=== PATIENT | female | born 1985 | race American Indian/Alaskan Native ===

== ENCOUNTER 2020-05-17 22:01 | Emergency (ER) | payer MEDICAID ==
[2020-05-17 22:48] VITALS: BP 126/53
--- NOTE | 2020-05-18 00:02 | Emergency Department Report ---
ED ENT HPI - General Chief complaint: Sore Throat Stated complaint: THROAT IS BURNING Time Seen by Provider: 05/17/20 23:34 Source: patient Mode of arrival: Ambulatory Limitations: No Limitations - History of Present Illness Initial comments: 34-year-old female with no significant past medical history presents to the ER today complaining of sore throat. Onset 3 days ago. She describes as a burning pain which is worse when she swallows. She reports associated swelling to her throat. She states that she has been spitting frequently but denies any d rooling or trismus. She reports associated mild cough but denies any other symptoms. She denies any ill contacts or recent travel. complaint: sore throat -: Gradual, days(s) (3) Location: throat - Related Data Previous Rx's Medication Instructions Recorded Last Taken Type Amoxicillin [Trimox CAP] 500 mg PO Q12H #20 capsule 05/18/20 Unknown Rx predniSONE [Deltasone] 40 mg PO QDAY #10 tab 05/18/20 Unknown Rx Allergies Allergy/AdvReac Type Severity Reaction Status Date / Time No Known Allergies Allergy Unverified 05/17/20 22:44 ED Dental HPI - General Chief complaint: Sore Throat Stated complaint: THROAT IS BURNING Time Seen by Provider: 05/17/20 23:34 Source: patient Mode of arrival: Ambulatory Limitations: No Limitations - Related Data Previous Rx's Medication Instructions Recorded Last Taken Type Amoxicillin [Trimox CAP] 500 mg PO Q12H #20 capsule 05/18/20 Unknown Rx predniSONE [Deltasone] 40 mg PO QDAY #10 tab 05/18/20 Unknown Rx Allergies Allergy/AdvReac Type Severity Reaction Status Date / Time No Known Allergies Allergy Unverified 05/17/20 22:44 ED Review of Systems ROS: Stated complaint: THROAT IS BURNING Other details as noted in HPI Comment: All other systems reviewed and negative Constitutional: denies: chills, fever ENT: throat pain Respiratory: cough Cardiovascular: denies: chest pain, palpitations Endocrine: no symptoms reported Gastrointestinal: denies: abdominal pain, nausea, diarrhea Genitourinary: denies: urgency, dysuria, discharge Musculoskeletal: denies: back pain, joint swelling, arthralgia Skin: denies: rash, lesions Neurological: denies: headache, weakness, paresthesias Psychiatric: denies: anxiety, depression ED Past Medical Hx - Past Medical History Previous Medical History?: No - Surgical History Past Surgical History?: Yes Additional Surgical History: Gastric Bypass 03/2019, - Social History Smoking Status: Never Smoker Substance Use Type: None - Medications Home Medications: Home Medications Medication Instructions Recorded Confirmed Last Taken Type Amoxicillin [Trimox CAP] 500 mg PO Q12H #20 capsule 05/18/20 Unknown Rx predniSONE [Deltasone] 40 mg PO QDAY #10 tab 05/18/20 Unknown Rx ED Physical Exam - General Limitations: No Limitations General appearance: alert, in no apparent distress - Head Head exam: Present: atraumatic, normocephalic, normal inspection - Eye Eye exam: Present: normal appearance, PERRL, EOMI Pupils: Present: normal accommodation - ENT ENT exam: Present: normal exam, mucous membranes moist, other (Mild to mod erythema noted to posterior pharynx, no tonsillar swelling or exudates noted. No trismus or drooling noted. ) - Neck Neck exam: Present: normal inspection, full ROM, lymphadenopathy (anterior cervical ). Absent: meningismus - Respiratory Respiratory exam: Present: normal lung sounds bilaterally. Absent: respiratory distress - Cardiovascular Cardiovascular Exam: Present: regular rate, normal rhythm, normal heart sounds - GI/Abdominal GI/Abdominal exam: Present: soft. Absent: distended, tenderness - Neurological Exam Neurological exam: Present: alert, oriented X3, CN II-XII intact, normal gait - Psychiatric Psychiatric exam: Present: normal affect, normal mood - Skin Skin exam: Present: intact ED Course Vital Signs 05/17/20 22:44 Temperature 98.4 F Pulse Rate 80 Respiratory 18 Rate Blood Pressure 126/53 O2 Sat by Pulse 100 Oximetry ED Medical Decision Making - Medical Decision Making The patient is resting comfortably and is well-appearing and in no acute distress. There is no respiratory distress, no stridor and the mental status is normal. The neurological exam is normal, and there is no significant signs of dehydration. The history, exam, diagnostic testing and the patient current condition does not suggest an infectious process such as meningitis, retropharyngeal abscess, epiglottitis, peritonsillar abscess, Robert's angina, mastoiditis, orbital cellulitis, periorbital cellulitis, severe meningitis, malignant otitis externa, sepsis or any significant pathology warranting further testing, continued ED treatment, admission, consultation or any other evaluation at this time. The vital signs have been stable. The patient condition is stable and appropriate for discharge. Critical care attestation.: If time is entered above; I have spent that time in minutes in the direct care of this critically ill patient, excluding procedure time. ED Disposition Clinical Impression: Pharyngitis Disposition: DC-01 TO HOME OR SELFCARE Is pt being admited?: No Does the pt Need Aspirin: No Condition: Stable Instructions: Pharyngitis, [id number] Additional Instructions: Take the medication prescribed as directed. Drink lots of fluids, especially cold fluids. You can also do [id number] throat lozenges. Follow-up closely with your primary care doctor. Return to the ER if your symptoms changes or worsens. Prescriptions: predniSONE [Deltasone] 40 mg PO QDAY #10 tab Amoxicillin [Trimox CAP] 500 mg PO Q12H #20 capsule Referrals: ALTAGRACIA CHERY MD [Primary Care Provider] - 3-5 Days Time of Disposition: 00:02
== END 2020-05-18 00:16 | disposition home or self-care (01) ==
LOC: ED 22:01
DX: J02.9 Acute pharyngitis, unspecified (principal); R22.0 Localized swelling, mass and lump, head; R05 Cough; Z98.890 Other specified postprocedural states; Z79.2 Long term (current) use of antibiotics; Z79.899 Other long term (current) drug therapy
CPT/HCPCS: 99281

== ENCOUNTER 2021-05-31 08:24 | Emergency (ER) | payer MEDICAID ==
--- NOTE | 2021-05-31 09:42 | Event Note ---
ED Screening Note Date of service: 05/31/21 Time: 09:25 ED Screening Note: 35-year-old morbid obese -[place] female presents to the emergency room complaining of a 4-day history of right flank pain and stomach pain. Patient states sitting makes it worse better makes it lying down. She states that it is stabbing and constant. She complains of nausea vomiting and diarrhea. She denies any vaginal bleeding vaginal discharge or dysuria. She reports her last menstrual period started 05/30/2020. She reports she does not have a primary care provider but is followed by structural drafter for anemia and multiple blood transfusions. Patient states she had bypass surgery approximately 2 to [address] Mendez Gandhi [facility]. She states that she is on anti-gas medicine and vitamin B. This initial assessment/diagnostic orders/clinical plan/treatment(s) is/are subject to change based on patients health status, clinical progression and re- assessment by fellow clinical providers in the ED. Further treatment and workup at subsequent clinical providers discretion. Patient/guardian urged not to elope from the ED as their condition may be serious if not clinically assessed and managed. Initial orders include:
[2021-05-31] MEDS ORDERED: ONDANSETRON 4 MG ODT TAB PO ONE (10:32)
[2021-05-31] MEDS ORDERED: KETOROLAC 60 MG/2 ML INJ IM ONE (10:33)
--- NOTE | 2021-05-31 10:39 | Emergency Department Report ---
HPI - General Chief Complaint: Abdominal Pain Time Seen by Provider: 05/31/21 10:03 - HPI HPI: Room 7 Patient is a 35-year-old female present with a chief complaint of right flank pain. The patient states for the past 4 days she has had a constant pain in the right upper quadrant and right back. Patient admits to nausea vomiting and diarrhea with this pain. Patient denies history of fever, dysuria or hematuria. Patient states for the past 2 to 3 days she has had diarrhea. Patient denies recent antibiotic use. Patient gives her pain a score of 8/10 ED Past Medical Hx - Past Medical History Previous Medical History?: No - Surgical History Additional Surgical History: Gastric Bypass 03/2019, - Family History Family history: no significant - Social History Smoking Status: Never Smoker Substance Use Type: None (Denies illicit drug use) - Medications Home Medications: Home Medications Medication Instructions Recorded Confirmed Last Taken Type Amoxicillin [Trimox CAP] 500 mg PO Q12H #20 capsule 05/18/20 Unknown Rx predniSONE [Deltasone] 40 mg PO QDAY #10 tab 05/18/20 Unknown Rx Dicyclomine [Bentyl] 20 mg PO QID #20 tablet 05/31/21 Unknown Rx HYDROcodone/APAP 5-325 [[place] 1 - 2 each PO Q6HR PRN #10 tablet 05/31/21 Unknown Rx 5/325] Pantoprazole [Protonix] 40 mg PO QDAY #20 tablet 05/31/21 Unknown Rx Promethazine [Phenergan] 25 mg PO Q6HR PRN #20 tab 05/31/21 Unknown Rx Promethazine [Phenergan] 25 mg [place] Q6HR PRN #5 supp.rect 05/31/21 Unknown Rx ED Review of Systems ROS: Stated complaint: ABD PAIN/POST OP SURGERY Other details as noted in HPI Constitutional: denies: fever Eyes: denies: eye pain ENT: denies: throat pain Respiratory: no symptoms reported Cardiovascular: denies: chest pain Endocrine: no symptoms reported Gastrointestinal: abdominal pain, nausea, vomiting, diarrhea Genitourinary: denies: dysuria, hematuria Musculoskeletal: back pain Neurological: denies: headache Physical Exam - Physical Exam Physical Exam: GENERAL: The patient is well-developed well-nourished female lying on stretcher not appearing to be in acute distress. 3 young children present at bedside HEENT: Normocephalic. Atraumatic. Extraocular motions are intact. Patient has moist mucous membranes. NECK: Supple. Trachea midline CHEST/LUNGS: Clear to auscultation. There is no respiratory distress noted. HEART/CARDIOVASCULAR: Regular. There is no tachycardia. There is no gallop rub or murmur. ABDOMEN: Abdomen is soft, nontender but patient complains of pain in the right upper quadrant. Absent Pereyra's sign. There is no rebound or guarding. P atient has normal bowel sounds. There is no abdominal distention. SKIN: There is no rash. There is no edema. There is no diaphoresis. NEURO: The patient is awake, alert, and oriented. The patient is cooperative. The patient has no focal neurologic deficits. The patient has normal speech. GCS 15 MUSCULOSKELETAL: There is CVA tenderness. There is no evidence of acute injury. ED Course - Consultations Consultation #1: 05/31/21 12:22 GI paged 05/31/21 13:[address] Styles-the patient does not appear as if she needs admission may start a PPI, fluids and antispasmodic with follow-up with surgery. Patient will eventually need to have her gallbladder removed ED Medical Decision Making - Lab Data Result diagrams: 05/31/21 10:09 05/31/21 10:09 Laboratory Tests 05/31/21 05/31/21 05/31/21 10:09 10:09 10:09 WBC 7.6 RBC 4.48 Hgb 14.1 Hct 40.4 MCV 90 MCH 31 MCHC 35 H RDW 13.7 Plt Count 280 Lymph % (Auto) 9.4 L [place] % (Auto) 5.1 Eos % (Auto) 0.1 Baso % (Auto) 0.4 Lymph # (Auto) 0.7 L [place] # (Auto) 0.4 Eos # (Auto) 0.0 Baso # (Auto) 0.0 Seg Neutrophils % 85.0 H Seg Neutrophils # 6.4 Sodium 137 Potassium 3.5 L Chloride 103.6 Carbon Dioxide 18 L Anion Gap 19 BUN 15 Creatinine 1.1 Estimated GFR > 60 BUN/Creatinine Ratio 14 Glucose 120 H Calcium 10.1 Total Bilirubin 0.40 AST 10 ALT 8 Alkaline Phosphatase 80 Total Protein 8.1 Albumin 4.7 Albumin/Globulin Ratio 1.4 Lipase 91 H HCG, Quant < 2 - Radiology Data Radiology results: report reviewed (CT abdomen pelvis), image reviewed (CT abdomen pelvis) [facility] [address] [place] [address] Cat Scan Report Signed Patient: ANDREI SYLVESTER MR#: [id number] : 1985 Acct:[id number] Age/Sex: 35 / F ADM Date: 05/31/21 Loc: ED Attending Dr: Ordering Physician: CELINA IVERSON MD Date of Service: 05/31/21 Procedure(s): CT abdomen pelvis wo con Accession Number(s): [id number] cc: CELINA IVERSON MD CT ABDOMEN AND PELVIS WITHOUT CONTRAST INDICATION: Right flank pain. TECHNIQUE: Axial CT images were obtained through the abdomen and pelvis without IV contrast. All CT scans at this location are performed using CT dose reduction for ALARA by means of automated exposure cont rol. COMPARISON: None available. FINDINGS: LOWER CHEST: No significant abnormality. LIVER: No significant abnormality. GALLBLADDER: Tiny calcified gallstone BILE DUCTS: No significant abnormality. PANCREAS: No significant abnormality. SPLEEN: No significant abnormality. ADRENALS: No significant abnormality. RIGHT KIDNEY and URETER: No significant abnormality. LEFT KIDNEY and URETER: No significant abnormality. STOMACH and SMALL BOWEL: Gurvinder-en-Y gastric bypass surgery. Mild to moderate thickening and inflammation surrounding the duodenal bulb and C-loop characteristic for duodenitis. COLON: No significant abnormality. APPENDIX: Normal. PERITONEUM: No free fluid. No free air. No fluid collection. LYMPH NODES: No significant adenopathy. AORTA and ARTERIES: No significant a bnormality. IVC and VEINS: No significant abnormality. URINARY BLADDER: No significant abnormality. REPRODUCTIVE ORGANS: No significant abnormality. ADDITIONAL FINDINGS: None. SKELETAL SYSTEM: No significant abnormality. IMPRESSION: 1. Duodenitis. 2. Cholelithiasis without CT evidence for cholecysti tis. 3 Gurvinder-en-Y gastric bypass. Signer Name: Hubert Rand MD Signed: 05/31/2021 12:07 PM Workstation Name: [id number] Transcribed By: TL Dictated By: Hubert Rand MD Electronically Authenticated By: Hubert Rand MD Signed Date/Time: 05/31/21 1207 DD/ 1204 TD/TT: Print Cancel - Differential Diagnosis Renal colic, pyelonephritis, cholelithiasis, cholecystitis, gastroenteritis Critical care attestation.: If time is entered above; I have spent that time in minutes in the direct care of this critically ill patient, excluding procedure time. ED Disposition Clinical Impression: Acute abdominal pain, Duodenitis, Gastroenteritis, Cholelithiasis, UTI (urinary tract infection) Disposition: HOME / SELF CARE / HOMELESS Is pt being admited?: No Does the pt Need Aspirin: No Condition: Stable Instructions: Abdominal Pain (ED), Duodenitis, Viral Gastroenteritis, Adult Additional Instructions: Return to the emergency department should you develop worsening symptoms, inability to tolerate food or liquids, high fever or any other concerns Prescriptions: Dicyclomine [Bentyl] 20 mg PO QID #20 tablet HYDROcodone/APAP 5-325 [[place] 5/325] 1 - 2 each PO Q6HR PRN #10 tablet PRN Reason: Pain Promethazine [Phenergan] 25 mg PO Q6HR PRN #20 tab PRN Reason: Nausea Promethazine [Phenergan] 25 mg [place] Q6HR PRN #5 supp.rect PRN Reason: Vomiting Pantoprazole [Protonix] 40 mg PO QDAY #20 tablet Referrals: PRIMARY CARE, [Primary Care Provider] - 3-5 Days JEFFREY HUTCHINSON MD [Staff Physician] - 3-5 Days (Dr. Hutchinson is a surgeon. Please follow-up with her for further evaluation of your gallbladder.) Time of Disposition: 13:19
[2021-05-31 10:46] LABS: Basophils % (Auto) 0.4 % (0.0-1.8); Eosinophils % (Auto) 0.1 % (0.0-4.3); Hematocrit 40.4 % (30.3-42.9); Hemoglobin 14.1 gm/dl (10.1-14.3); Lymphocytes # (Auto) 0.7 K/mm3 (1.2-5.4); Lymphocytes % (Auto) 9.4 % (13.4-35.0); Mean Corpuscular HGB Conc 35 % (30-34); Mean Corpuscular Volume 90 fl (79-97); Monocytes # (Auto) 0.4 K/mm3 (0.0-0.8); Monocytes % (Auto) 5.1 % (0.0-7.3); Platelet Count 280 K/mm3 (140-440); Red Blood Count 4.48 M/mm3 (3.65-5.03); Red Cell Distribution Width 13.7 % (13.2-15.2)
[2021-05-31 11:07] LABS: Alanine Aminotransferase 8 units/L (7-56); Albumin 4.7 g/dL (3.9-5); BUN/Creatinine Ratio 14; Blood Urea Nitrogen 15 mg/dL (7-17); Calcium 10.1 mg/dL (8.4-10.2); Hemolysis Index 7
--- NOTE | 2021-05-31 12:12 | Cat Scan Report ---
CT ABDOMEN AND PELVIS WITHOUT CONTRAST INDICATION: Right flank pain. TECHNIQUE: Axial CT images were obtained through the abdomen and pelvis without IV contrast. All CT scans at [facility] are performed using CT dose reduction for ALARA by means of automated exposure control. COMPARISON: None available. FINDINGS: LOWER CHEST: No significant abnormality. LIVER: No significant abnormality. GALLBLADDER: Tiny calcified gallstone BILE DUCTS: No significant abnormality. PANCREAS: No significant abnormality. SPLEEN: No significant abnormality. ADRENALS: No significant abnormality. RIGHT KIDNEY and URETER: No significant abnormality. LEFT KIDNEY and URETER: No significant abnormality. STOMACH and SMALL BOWEL: Gurvinder-en-Y gastric bypass surgery. Mild to moderate thickening and inflammati on surrounding the duodenal bulb and C-loop characteristic for duodenitis. COLON: No significant abnormality. APPENDIX: Normal. PERITONEUM: No free fluid. No free air. No fluid collection. LYMPH NODES: No significant adenopathy. AORTA and ARTERIES: No significant abnormality. IVC and VEINS: No significant abnormality. URINARY BLADDER: No significant abnormality. REPRODUCTIVE ORGANS: No significant abnormality. ADDITIONAL FINDINGS: None. SKELETAL SYSTEM: No significant abnormality. IMPRESSION: 1. Duodenitis. 2. Cholelithiasis without CT evidence for cholecystitis. 3 Gurvinder-en-Y gastric bypass. Signer Name: Hubert Rand MD Signed: 05/31/2021 12:07 PM Workstation Name: [id number]
[2021-05-31 12:45] LABS: Bacteria,Urine 1+ /HPF (Negative); Bilirubin,Urine NEG (Negative); Blood,Urine LG (Negative); Color,Urine Yellow (Yellow); Hyaline Casts,Urine 6 /LPF; Mucus,Urine 2+ /HPF
[2021-05-31 12:46] LABS: RBC,Urine > 182.0 /HPF (0.0-6.0)
[2021-05-31] MEDS ORDERED: PANTOPRAZOLE 40 MG TAB PO ONE (13:06)
[2021-05-31] MEDS ORDERED: levoFLOXacin 500 MG TAB PO ONE (13:18)
[2021-05-31 13:52] VITALS: BP 124/58
== END 2021-05-31 13:52 | disposition home or self-care (01) ==
LOC: ED 08:24
DX: K52.9 Noninfective gastroenteritis and colitis, unspecified (principal); N39.0 Urinary tract infection, site not specified; R10.11 Right upper quadrant pain; K29.80 Duodenitis without bleeding
CPT/HCPCS: 36415; 74176; 80053; 81001; 83690; 84702; 85025; 96372; 99284; J1885; J3490; Q0162

== ENCOUNTER 2021-06-09 17:49 | Emergency (ER) | payer MEDICAID ==
[2021-06-09] MEDS ORDERED: KETOROLAC 30 MG/1 ML INJ IM ONE (21:34)
[2021-06-09] MEDS ORDERED: ONDANSETRON 4 MG ODT TAB PO ONE (21:35)
[2021-06-09 22:10] LABS: Basophils % (Auto) 0.4 % (0.0-1.8); Eosinophils % (Auto) 0.4 % (0.0-4.3); Hematocrit 34.7 % (30.3-42.9); Hemoglobin 11.8 gm/dl (10.1-14.3); Lymphocytes # (Auto) 1.3 K/mm3 (1.2-5.4); Lymphocytes % (Auto) 18.8 % (13.4-35.0); Mean Corpuscular HGB Conc 34 % (30-34); Mean Corpuscular Volume 91 fl (79-97); Monocytes # (Auto) 0.4 K/mm3 (0.0-0.8); Monocytes % (Auto) 5.8 % (0.0-7.3); Platelet Count 310 K/mm3 (140-440); Red Blood Count 3.79 M/mm3 (3.65-5.03); Red Cell Distribution Width 13.6 % (13.2-15.2)
[2021-06-09 22:25] LABS: Alanine Aminotransferase 13 units/L (7-56); Albumin 4.4 g/dL (3.9-5); BUN/Creatinine Ratio 6; Blood Urea Nitrogen 5 mg/dL (7-17); Calcium 9.3 mg/dL (8.4-10.2); Hemolysis Index 14
[2021-06-09 23:49] LABS: Bilirubin,Urine NEG (Negative); Blood,Urine NEG (Negative); Color,Urine Yellow (Yellow); Mucus,Urine FEW /HPF; Urobilinogen,Urine < 2.0 mg/dL (<2.0)
[2021-06-09 23:54] LABS: HCG Qualitative,Urine Negative (Negative); RBC,Urine < 1.0 /HPF (0.0-6.0)
--- NOTE | 2021-06-10 00:11 | Emergency Department Report ---
ED Back Pain/Injury HPI - General Chief Complaint: Back Pain/Injury Stated Complaint: TOOTHACHE/BACK PAIN Source: patient Limitations: No Limitations - History of Present Illness Initial Comments: Patient is a 35-year-old -[place]ym[place] female with no past medical history presents to the ED with complaint of acute onset persistent left maxillary premolar molar toothache with swollen gums and persistent lower back pain for the last 10 days. Patient states that she was initially evaluated in this ED and diagnosed with cholelithiasis and UTI and took antibiotics, Levaquin 750 mg and finished. Patient states that the symptoms have been persistent and lower back pain appears to be getting worse. Patient denies nausea and vomiting, diarrhea, dysuria, urine frequency and urgency, vaginal discharge, vaginal bleeding, chest pain or shortness of breath, sore throat, headache, dizziness, syncope or traumatic injury. MD Complaint: back pain (Left lower back), other (Left maxillary premolar and molar toothache;) -: Sudden, days(s) (10) Similar Symptoms Previously: Yes Place: home Radiation: none Severity: severe Severity scale (0 -10): 7 Quality: sharp, aching Consistency: constant Improves With: none Worsens With: movement, walking Context: unknown Associated Symptoms: denies other symptoms, other (Left maxillary premolar and molar toothache with swollen gums). denies: weakness, chest pain, numbness, difficulty walking, cough, difficulty urinating, diaphoresis, incontinence, constipation, headaches, abdominal pain, loss of appetite, malaise, rash, seizure, shortness of breath, syncope Treatments Prior to Arrival: acetaminophen - Related Data Previous Rx's Medication Instructions Recorded Last Taken Type Amoxicillin [Trimox CAP] 500 mg PO Q12H #20 capsule 05/18/20 Unknown Rx predniSONE [Deltasone] 40 mg PO QDAY #10 tab 05/18/20 Unknown Rx Dicyclomine [Bentyl] 20 mg PO QID #20 tablet 05/31/21 Unknown Rx HYDROcodone/APAP 5-325 [Carr 1 - 2 each PO Q6HR PRN #10 tablet 05/31/21 Unknown Rx 5/325] Pantoprazole [Protonix] 40 mg PO QDAY #20 tablet 05/31/21 Unknown Rx Promethazine [Phenergan] 25 mg PO Q6HR PRN #20 tab 05/31/21 Unknown Rx Promethazine [Phenergan] 25 mg [place] Q6HR PRN #5 supp.rect 05/31/21 Unknown Rx levoFLOXacin [Levaquin TAB] 500 mg PO QDAY #10 tablet 05/31/21 Unknown Rx Clindamycin [Clindamycin CAP] 300 mg PO Q8H #30 cap 06/10/21 Unknown Rx Naproxen 500 mg PO Q12H PRN #30 06/10/21 Unknown Rx Sulfamethoxazole/Trimethoprim 1 each PO Q12H #20 tab 06/10/21 Unknown Rx [Bactrim DS TAB] methOCARBAMOL [Robaxin TAB] 750 mg PO Q12H PRN #24 tab 06/10/21 Unknown Rx traMADoL [Ultram] 50 mg PO Q6HR PRN #10 tablet 06/10/21 Unknown Rx Allergies Allergy/AdvReac Type Severity Reaction Status Date / Time diphenhydramine AdvReac Dizziness Verified 05/31/21 08:54 [From Benadryl] ED Review of Systems ROS: Stated complaint: TOOTHACHE/BACK PAIN Other details as noted in HPI Constitutional: denies: chills, fever Eyes: denies: eye pain, eye discharge, vision change ENT: dental pain (Left maxillary premolar and molar toothache with swollen gums). denies: ear pain, throat pain Respiratory: denies: cough, shortness of breath, wheezing Cardiovascular: denies: chest pain, palpitations Endocrine: no symptoms reported Gastrointestinal: denies: abdominal pain, nausea, diarrhea Genitourinary: denies: urgency, dysuria, discharge Musculoskeletal: back pain (Low back pain). denies: joint swelling, arthralgia Skin: denies: rash, lesions Neurological: denies: headache, weakness, paresthesias Psychiatric: denies: anxiety, depression Hematological/Lymphatic: denies: easy bleeding, easy bruising ED Past Medical Hx - Surgical History Additional Surgical History: Gastric Bypass 03/2019, - Social History Smoking Status: Never Smoker Substance Use Type: None (Denies illicit drug use) - Medications Home Medications: Home Medications Medication Instructions Recorded Confirmed Last Taken Type Amoxicillin [Trimox CAP] 500 mg PO Q12H #20 capsule 05/18/20 Unknown Rx predniSONE [Deltasone] 40 mg PO QDAY #10 tab 05/18/20 Unknown Rx Dicyclomine [Bentyl] 20 mg PO QID #20 tablet 05/31/21 Unknown Rx HYDROcodone/APAP 5-325 [Carr 1 - 2 each PO Q6HR PRN #10 tablet 05/31/21 Unknown Rx 5/325] Pantoprazole [Protonix] 40 mg PO QDAY #20 tablet 05/31/21 Unknown Rx Promethazine [Phenergan] 25 mg PO Q6HR PRN #20 tab 05/31/21 Unknown Rx Promethazine [Phenergan] 25 mg ME Q6HR PRN #5 supp.rect 05/31/21 Unknown Rx levoFLOXacin [Levaquin TAB] 500 mg PO QDAY #10 tablet 05/31/21 Unknown Rx Clindamycin [Clindamycin CAP] 300 mg PO Q8H #30 cap 06/10/21 Unknown Rx Naproxen 500 mg PO Q12H PRN #30 06/10/21 Unknown Rx Sulfamethoxazole/Trimethoprim 1 each PO Q12H #20 tab 06/10/21 Unknown Rx [Bactrim DS TAB] methOCARBAMOL [Robaxin TAB] 750 mg PO Q12H PRN #24 tab 06/10/21 Unknown Rx traMADoL [Ultram] 50 mg PO Q6HR PRN #10 tablet 06/10/21 Unknown Rx ED Physical Exam - General Limitations: No Limitations General appearance: alert, in no apparent distress - Head Head exam: Present: atraumatic, normocephalic, normal inspection - Eye Eye exam: Present: normal appearance, PERRL, EOMI Pupils: Present: normal accommodation - ENT ENT exam: Present: mucous membranes moist, TM's normal bilaterally, normal external ear exam, other (Swollen, tender left maxillary gingiva with tender left maxillary premolar and molar teeth) - Neck Neck exam: Present: normal inspection, full ROM. Absent: tenderness - Respiratory Respiratory exam: Present: normal lung sounds bilaterally. Absent: respiratory distress, wheezes, rales, rhonchi, stridor, chest wall tenderness, accessory muscle use, decreased breath sounds, prolonged expiratory - Cardiovascular Cardiovascular Exam: Present: regular rate, normal rhythm, normal heart sounds. Absent: systolic murmur, diastolic murmur, rubs, gallop - GI/Abdominal GI/Abdominal exam: Present: soft, normal bowel sounds. Absent: tenderness, guarding, rigid, hyperactive bowel sounds, hypoactive bowel sounds, mass, bruit - Extremities Exam Extremities exam: Present: normal inspection, full ROM, normal capillary refill. Absent: tenderness - Back Exam Back exam: Present: normal inspection, full ROM, tenderness (Palpable left lumbosacral paraspinal musculoskeletal tenderness), muscle spasm, paraspinal tenderness. Absent: CVA tenderness (R), CVA tenderness (L), vertebral tenderness, rash noted - Neurological Exam Neurological exam: Present: alert, oriented X3, normal gait, reflexes normal - Psychiatric Psychiatric exam: Present: normal affect, normal mood - Skin Skin exam: Present: warm, dry, intact, normal color. Absent: rash ED Course Vital Signs 06/09/21 06/09/21 18:20 22:27 Temperature 98.9 F Pulse Rate 70 Respiratory 20 14 Rate Blood Pressure 112/59 O2 Sat by Pulse 99 Oximetry ED Medical Decision Making - Lab Data Result diagrams: 06/09/21 21:40 06/09/21 21:40 - Medical Decision Making This is a 35-year-old -[place] female with no past medical history presents to the ED with complaint of acute onset persistent left maxillary premolar molar toothache with swollen gums and persistent lower back pain for the last 10 days. Patient states that she was initially evaluated in this ED and diagnosed with cholelithiasis and UTI and took antibiotics, Levaquin 750 mg and finished. Patient states that the symptoms have been persistent and lower back pain appears to be getting worse. In the ED, patient is alert and oriented x3 and is not in any distress. Patient was treated in the ED for pain, and lab test results were reviewed and showed acute urinary tract infection. Rest of the lab test results were nonactionable. On reevaluation, patient's pain is well controlled medication. Patient will discharge home on pain medications and advised to follow-up with her primary care physician in 7 to 10 days for reevaluation. Patient was also advised to consider following up with the dentist in 7 to 10 days or return to the ED immediately if symptoms get worse. - Differential Diagnosis UTI; muscle spasm; muscle strain; dental abscess; gingivitis Critical care attestation.: If time is entered above; I have spent that time in minutes in the direct care of this critically ill patient, excluding procedure time. ED Disposition Clinical Impression: Dental abscess, Acute gingivitis, Spasm of muscle of lower back, Acute urinary tract infection Disposition: HOME / SELF CARE / HOMELESS Is pt being admited?: No Does the pt Need Aspirin: No Condition: Stable Instructions: Muscle Cramps and Spasms, [id number], Dental Abscess, [id number], Urinary Tract Infection, Adult, [id number], Back Injury Prevention, [id number] Additional Instructions: All lab test results were reviewed and are all nonactionable except for urinary tract infection in urinalysis. Therefore take medications with food, drink plenty of fluids and follow-up with your primary care physician in 7 to 10 days for reevaluation. Consider following up also with the dentist in 7 to 10 days for reevaluation. Return to the ED immediately if symptoms get worse. Prescriptions: Sulfamethoxazole/Trimethoprim [Bactrim DS TAB] 1 each PO Q12H #20 tab Clindamycin [Clindamycin CAP] 300 mg PO Q8H #30 cap Naproxen 500 mg PO Q12H PRN #30 PRN Reason: Pain , Severe (7-10) methOCARBAMOL [Robaxin TAB] 750 mg PO Q12H PRN #24 tab PRN Reason: Muscle Spasm traMADoL [Ultram] 50 mg PO Q6HR PRN #10 tablet PRN Reason: Pain Referrals: [facility] [Outside] - 7-10 days [facility] [Outside] - 7-10 days Forms: Work/School Release Form(ED) Time of Disposition: 00:11 Print Language: MONGOLIAN
[2021-06-10 00:48] VITALS: BP 127/65
== END 2021-06-10 00:49 | disposition home or self-care (01) ==
LOC: ED 17:49
DX: K04.7 Periapical abscess without sinus (principal); K05.00 Acute gingivitis, plaque induced; M62.830 Muscle spasm of back; N39.0 Urinary tract infection, site not specified; Z88.8 Allergy status to other drugs, medicaments and biological substances
CPT/HCPCS: 36415; 80053; 81001; 81025; 85025; 87086; 96372; 99283; J1885; J3490; Q0162

== ENCOUNTER 2021-06-29 08:17 | Emergency (ER) | payer MEDICAID ==
[2021-06-29 08:45] VITALS: BP 124/74
[2021-06-29] MEDS ORDERED: KETOROLAC 60 MG/2 ML INJ IM ONE (08:55)
[2021-06-29] MEDS ORDERED: predniSONE 20 MG TAB PO ONE (08:55)
--- NOTE | 2021-06-29 09:27 | Emergency Department Report ---
ED Upper Extremity Inj HPI - General Chief Complaint: Back Pain/Injury Stated Complaint: LT BACK PAIN Time Seen by Provider: 06/29/21 08:53 Source: patient Mode of arrival: Ambulatory Limitations: No Limitations - History of Present Illness Initial Comments: This is a 35-year-old female nontoxic, well nourished in appearance, no acute signs of distress presents to the ED with c/o of intermittent left shoulder pain 1 week. Patient stated has left shoulder pain radiates to left scapula area. Patient stated that is what she described as "back pains". Otherwise denies any back or neck pains. Patient stated that symptoms improves with rest and aggravated by repetitive movement. Patient denies any injuries or trauma. Patient denies any numbness, tingling, fever, chills, nausea, vomiting, chest pain, shortness of breath, headache, stiff neck. Patient denies any joint swelling or joint redness. Patient denies decreased range of motion. Patient stated allergies to diphenhydramine. MD Complaint: Injury to:: left, shoulder -: days(s) Other Extremity Injury: Shoulder: Left Place: home Severity scale (0 -10): 3 Improves With: immobilization Worsens With: movement of extremity Associated Symptoms: denies other symptoms. denies: weakness, numbness, neck pain, suspects foreign body, nausea/vomiting, heard/felt popping sensat - Related Data Previous Rx's Medication Instructions Recorded Last Taken Type Amoxicillin [Trimox CAP] 500 mg PO Q12H #20 capsule 05/18/20 Unknown Rx predniSONE [Deltasone] 40 mg PO QDAY #10 tab 05/18/20 Unknown Rx Dicyclomine [Bentyl] 20 mg PO QID #20 tablet 05/31/21 Unknown Rx HYDROcodone/APAP 5-325 [[place] 1 - 2 each PO Q6HR PRN #10 tablet 05/31/21 Unknown Rx 5/325] Pantoprazole [Protonix] 40 mg PO QDAY #20 tablet 05/31/21 Unknown Rx Promethazine [Phenergan] 25 mg PO Q6HR PRN #20 tab 05/31/21 Unknown Rx Promethazine [Phenergan] 25 mg NV Q6HR PRN #5 supp.rect 05/31/21 Unknown Rx levoFLOXacin [Levaquin TAB] 500 mg PO QDAY #10 tablet 05/31/21 Unknown Rx Clindamycin [Clindamycin CAP] 300 mg PO Q8H #30 cap 06/10/21 Unknown Rx Naproxen 500 mg PO Q12H PRN #30 06/10/21 Unknown Rx Sulfamethoxazole/Trimethoprim 1 each PO Q12H #20 tab 06/10/21 Unknown Rx [Bactrim DS TAB] methOCARBAMOL [Robaxin TAB] 750 mg PO Q12H PRN #24 tab 06/10/21 Unknown Rx traMADoL [Ultram] 50 mg PO Q6HR PRN #10 tablet 06/10/21 Unknown Rx Cyclobenzaprine [Flexeril] 10 mg PO QHS PRN #10 tab 06/29/21 Unknown Rx Naproxen 500 mg PO Q12H PRN #12 tab 06/29/21 Unknown Rx Allergies Allergy/AdvReac Type Severity Reaction Status Date / Time diphenhydramine AdvReac Dizziness Verified 05/31/21 08:54 [From Benadryl] ED Review of Systems ROS: Stated complaint: LT BACK PAIN Other details as noted in HPI Comment: All other systems reviewed and negative Constitutional: denies: chills, fever Eyes: denies: eye pain, eye discharge, vision change ENT: denies: ear pain, throat pain Respiratory: denies: cough, shortness of breath, wheezing Cardiovascular: denies: chest pain, palpitations Endocrine: no symptoms reported Gastrointestinal: denies: abdominal pain, nausea, diarrhea Genitourinary: denies: urgency, dysuria, discharge Musculoskeletal: denies: back pain, joint swelling, arthralgia Skin: denies: rash, lesions Neurological: denies: headache, weakness, paresthesias Psychiatric: denies: anxiety, depression Hematological/Lymphatic: denies: easy bleeding, easy bruising ED Past Medical Hx - Surgical History Additional Surgical History: Gastric Bypass 03/2019, - Social History Smoking Status: Never Smoker Substance Use Type: None (Denies illicit drug use) - Medications Home Medications: Home Medications Medication Instructions Recorded Confirmed Last Taken Type Amoxicillin [Trimox CAP] 500 mg PO Q12H #20 capsule 05/18/20 Unknown Rx predniSONE [Deltasone] 40 mg PO QDAY #10 tab 05/18/20 Unknown Rx Dicyclomine [Bentyl] 20 mg PO QID #20 tablet 05/31/21 Unknown Rx HYDROcodone/APAP 5-325 [[place] 1 - 2 each PO Q6HR PRN #10 tablet 05/31/21 Unknown Rx 5/325] Pantoprazole [Protonix] 40 mg PO QDAY #20 tablet 05/31/21 Unknown Rx Promethazine [Phenergan] 25 mg PO Q6HR PRN #20 tab 05/31/21 Unknown Rx Promethazine [Phenergan] 25 mg NV Q6HR PRN #5 supp.rect 05/31/21 Unknown Rx levoFLOXacin [Levaquin TAB] 500 mg PO QDAY #10 tablet 05/31/21 Unknown Rx Clindamycin [Clindamycin CAP] 300 mg PO Q8H #30 cap 06/10/21 Unknown Rx Naproxen 500 mg PO Q12H PRN #30 06/10/21 Unknown Rx Sulfamethoxazole/Trimethoprim 1 each PO Q12H #20 tab 06/10/21 Unknown Rx [Bactrim DS TAB] methOCARBAMOL [Robaxin TAB] 750 mg PO Q12H PRN #24 tab 06/10/21 Unknown Rx traMADoL [Ultram] 50 mg PO Q6HR PRN #10 tablet 06/10/21 Unknown Rx Cyclobenzaprine [Flexeril] 10 mg PO QHS PRN #10 tab 06/29/21 Unknown Rx Naproxen 500 mg PO Q12H PRN #12 tab 06/29/21 Unknown Rx ED Physical Exam - General Limitations: No Limitations General appearance: alert, in no apparent distress - Head Head exam: Present: atraumatic, normocephalic - Eye Eye exam: Present: normal appearance - Neck Neck exam: Present: normal inspection, full ROM. Absent: lymphadenopathy - Respiratory Respiratory exam: Present: normal lung sounds bilaterally. Absent: respiratory distress, wheezes, rales, rhonchi, stridor, chest wall tenderness, accessory muscle use, decreased breath sounds, prolonged expiratory - Cardiovascular Cardiovascular Exam: Present: regular rate, normal rhythm, normal heart sounds. Absent: bradycardia, tachycardia, irregular rhythm, systolic murmur, diastolic murmur, rubs, gallop - Extremities Exam Extremities exam: Present: normal inspection, full ROM, tenderness, normal capillary refill. Absent: joint swelling - Expanded Upper Extremity Exam Left General: Present: normal inspection Shoulder Exam: Present: normal inspection, full ROM, tenderness. Absent: swelling, abrasion, laceration, ecchymosis, deformity, crepidus, dislocation, erythema, tenderness over AC joint Upper Arm exam: Present: normal inspection, full ROM. Absent: tenderness, swelling Elbow exam: Present: normal inspection, full ROM. Absent: tenderness, swelling Forearm Wrist exam: Present: normal inspection, full ROM. Absent: tenderness, swelling Hand Wrist exam: Present: normal inspection, full ROM. Absent: tenderness, swelling Vascular: Present: normal capillary refill. Absent: vascular compromise (Neurovascular within normal limits) - Back Exam Back exam: Present: normal inspection, full ROM. Absent: tenderness, CVA tenderness (R), CVA tenderness (L), muscle spasm, paraspinal tenderness, vertebral tenderness, rash noted - Neurological Exam Neurological exam: Present: alert, oriented X3, normal gait - Psychiatric Psychiatric exam: Present: normal affect, normal mood - Skin Skin exam: Present: warm, dry, intact, normal color. Absent: rash ED Course Vital Signs 06/29/21 08:41 Temperature 98.3 F Pulse Rate 63 Respiratory 18 Rate Blood Pressure 124/74 [Right] O2 Sat by Pulse 99 Oximetry - Reevaluation(s) Reevaluation #1: 06/29/21 09:35 Patient is speaking in full sentences with no signs of distress noted. ED Medical Decision Making - [place] [address] XRay Report Signed Patient: ANDREI SYLVESTER MR#: [id number] : 1985 Acct:[id number] Age/Sex: 35 / F ADM Date: 06/29/21 Loc: ED Attending Dr: Ordering Physician: STEPHANIE MARQUIS NP Date of Service: 06/29/21 Procedure(s): XR shoulder 2+V LT Accession Number(s): [id number] cc: STEPHANIE MARQUIS NP Fluoro Time In Minutes: Left shoulder 3 views INDICATION: Left shoulder pain IMPRESSION: No fracture or subluxation of the left shoulder is identified. Signer Name: Randal Camilo MD Signed: 06/29/2021 9:56 AM Workstation Name: [id number] Transcribed By: BC Dictated By: Randal Camilo MD Electronically Authenticated By: Randal Camilo MD Signed Date/Time: 06/29/21955 DD/ 4 TD/TT: - Medical Decision Making This is a 35-year-old female that presents with left shoulder pain. Patient is stable was examined by me. There is no spinal tenderness. There is no cauda equina syndrome during examination. No bladder or bowel instability. Patient is notified of the x-ray results with no questions noted by the patient. Patient was instructed to get an MRI by her primary care doctor or orthopedic doctor. Patient received Toradol 60 mg IM and prednisone in the ED which stated that her symptoms has resolved and subsided. Patient is discharged with muscle relaxant and Motrin. Patient was instructed not to operate any machinery while taking muscle relaxant as they cause her drowsiness. Patient was referred to Follow-up with a primary care and orthopedic doctor in 3-5 days or if symptoms worsen and continue return to emergency room as soon as possible. At time of discharge, the patient does not seem toxic or ill in appearance. No acute signs of distress noted. Patient agrees to discharge treatment plan of care. No further questions noted by the patient. This chart is dictated with using [employer] Critical care attestation.: If time is entered above; I have spent that time in minutes in the direct care of this critically ill patient, excluding procedure time. ED Disposition Clinical Impression: Left shoulder pain Qualifiers: Chronicity: acute Qualified Code(s): M25.512 - Pain in left shoulder Disposition: HOME / SELF CARE / HOMELESS Is pt being admited?: No Does the pt Need Aspirin: No Condition: Stable Instructions: Shoulder Pain Additional Instructions: Follow-up with a primary care and orthopedic doctor in 3-5 days or if symptoms worsen and continue return to emergency room as soon as possible. No physical activity that extremity until cleared by orthopedic doctor Prescriptions: Cyclobenzaprine [Flexeril] 10 mg PO QHS PRN #10 tab PRN Reason: Muscle Spasm Naproxen 500 mg PO Q12H PRN #12 tab PRN Reason: Pain , Severe (7-10) Referrals: JUDITH EDWARDS MD [Primary Care Provider] - 3-5 Days PRIMARY CAREMD [Referring] - 3-5 Days MARK CONTRERAS MD [Staff Physician] - 3-5 Days Time of Disposition: 10:25
--- NOTE | 2021-06-29 10:00 | XRay Report ---
Left shoulder 3 views INDICATION: Left shoulder pain IMPRESSION: No fracture or subluxation of the left shoulder is identified. Signer Name: Randal Camilo MD Signed: 06/29/2021 9:56 AM Workstation Name: [id number]
== END 2021-06-29 10:41 | disposition home or self-care (01) ==
LOC: ED 08:17
DX: M25.512 Pain in left shoulder (principal); Z88.8 Allergy status to other drugs, medicaments and biological substances
CPT/HCPCS: 73030; 96372; 99283; J1885